=== PATIENT | female | born 1985 | race Caucasian/White ===

== ENCOUNTER 2020-08-30 12:56 | Outpatient (REF) | payer MEDICAID, SELFPAY ==
--- NOTE | 2020-08-30 09:30 | PAPFT_PTH ---
PATIENT: Kia Page LOC: [facility]#:[id number] AGE/SX: 35/F ROOM: RE08/30/[address]: Cookie Payan : 1985 BED: DIS: 08/30/2020 SPEC #: [id number] RECD: 08/30/20 13:04 STATUS: LISBETH POOL #: [id number] FREDDY: 08/30/20 09:[address]: Cookie Payan DEPT: [facility] Cytology RECD BY: Lacey Rodriguez ENTERED: 08/30/20 13:04 SP TYPE: PAPFT OTHR DR: Erendira Garcia Tissues: 1 - CX/ENDOCX FOR PAP SMEARS Procedures: PAP THIN PREP/[facility] Screening HPV DNA PROBE Comments: [id number]
[2020-08-30 14:59] LABS: Anion Gap 9.4 mmol/L (3-11); BUN 12 mg/dL (7-18); CO2 23.6 mmol/L (21.0-32.0); CREATININE 0.7 mg/dL (0.55-1.02); Calcium 8.7 mg/dL (8.5-10.1); Calculated LDL 123 mg/dL (<100); Chloride 108 mmol/L (98-107); Cholesterol 190 mg/dL (<200); Glucose 94 mg/dL (74-106); HDL Cholesterol 52 mg/dL (40-60); Sodium 141 mmol/L (136-145); TSH (W/Ref FT4) 0.91 uIU/mL (0.36-3.74); Triglyceride 79 mg/dL (<150)
== END 2020-08-30 12:57 | disposition home or self-care (01) ==
LOC: NCHCN 12:56
PROVIDERS: PCP Nurse Practitioner Adult Health; Visit Provider Nurse Practitioner Family
DX: Z12.4 Encounter for screening for malignant neoplasm of cervix (principal); Z11.51 Encounter for screening for human papillomavirus (HPV); Z13.220 Encounter for screening for lipoid disorders; Z13.29 Encounter for screening for other suspected endocrine disorder; Z13.228 Encounter for screening for other metabolic disorders; Z00.00 Encounter for general adult medical examination without abnormal findings
CPT/HCPCS: 80048; 80061; 88142; 84443; 87624

== ENCOUNTER 2024-02-19 14:54 | Emergency (ER) | payer MEDICAID, SELFPAY ==
[2024-02-19 15:03] VITALS: BP 121/98; PULSE 136; RESP 16; TEMP 36.6; O2SAT 98
[2024-02-19] MEDS: Silver sulfaDIAZINE 1% 25 GM TUBE TP (15:51)
[2024-02-19] MEDS: Clindamycin 300 MG CAP PO (15:51)
--- NOTE | 2024-02-19 15:56 | ED.GENADUL_ITS ---
Discharge Plan Disposition Patient Disposition: Home Condition: Stable Discharge Details Clinical Impression: Bilateral foot pain, Contact dermatitis and eczema Primary Care Provider: Erendira Garcia ED Provider: Isidro oRjas Home Meds and New Rx's Prescriptions: New silver sulfadiazine [Silvadene] 1 % cream 1 applic topical BID Qty: 50 0RF Rx Instructions: apply a 1.5 mm thickness clindamycin HCl 150 mg capsule 450 mg PO TID 7 Days Qty: 63 0RF No Action ibuprofen [Advil] 200 mg tablet 800 mg PO Q8H Discharge Instructions Instructions: Contact dermatitis Additional Instructions: please wash legs with the provided chlorhexadine rinse then apply silvadene cream, twice daily take antibiotic as prescribed return if symptoms worsen or aren't improving take medication provided (take 1/2 tab every 6-8 hours) as needed for pain HPI General Date/Time Provider Initiated Documentation: 02/19/24 14:56 . Limitations to Documentation: no limitations . Information obtained by: patient . HPI Narrative: 38-year-old female without significant past medical history presents for evaluation of bilateral foot lesions. She reports the onset of skin changes yesterday. She reports that she does have a history of eczema. She reports that every year she gets a reaction to her boots. She says when she wears her boots and socks for too long she sweats and then this creates a skin condition. She states that she gets it every year. Previously she has had steroids for treatment. She denies any numbness or tingling. Reports pain with touching of the skin. She denies any fever. She denies any history of diabetes or other vascular disorder. Related Data Home Medications ?Medication ?Instructions ?Recorded ?Confirmed clindamycin HCl 150 mg capsule 450 mg (3 x 150 mg) PO TID 7 days 02/19/24 #63 caps ibuprofen 200 mg tablet (Advil) 800 mg PO Q8H 02/19/24 02/19/24 silver sulfadiazine 1 % topical 1 applic topical BID #50 grams 02/19/24 cream (Silvadene) Previous Rx's ?Medication ?Instructions ?Recorded clindamycin HCl 150 mg capsule 450 mg (3 x 150 mg) PO TID 7 days 02/19/24 #63 caps silver sulfadiazine 1 % topical 1 applic topical BID #50 grams 02/19/24 cream (Silvadene) Allergies Allergy/AdvReac Type Severity Reaction Status Date / Time No Known Allergies Allergy Unverified 02/19/24 15:06 General Stated Complaint: RashLesion TEQUILA: 3 Exam Narrative Exam Narrative: Review of Systems: All systems reviewed & are unremarkable except as noted in HPI and below Well-developed, no acute distress NCAT slightly tachycardic Unlabored respiratory effort bilateral LE with lesions noted. mostly on the dorsum of the foot and then is noted circumferential ankle and on medial calf. the calf lesions are almost pustular, like folliculiits there are multiple blisters on the feet, wheeping clear fluid good cap refill and 2+ pulse noted lesions are in distribution of her socks, she notes Course Vital Signs Vital signs: Vital Signs Temperature 36.6 C 02/19/24 15:03 Pulse 136 H 02/19/24 15:03 Respiratory Rate 16 02/19/24 15:03 Blood Pressure 121/98 H 02/19/24 15:03 Pulse Oximetry 98 02/19/24 15:03 Temperature 36.6 C 02/19/24 15:03 Temperature Source Oral 02/19/24 15:03 Pulse 136 H 02/19/24 15:03 Respiratory Rate 16 02/19/24 15:03 Respiratory Effort Normal 02/19/24 15:30 Blood Pressure 121/98 H 02/19/24 15:03 Blood Pressure Position Sitting 02/19/24 15:03 Pulse Oximetry 98 02/19/24 15:03 Oxygen Delivery Method Room Air 02/19/24 15:03 Oxygen Flow Rate 0 02/19/24 15:03 Pain Level 5 02/19/24 15:30 Medical Decision Making Emergent evaluation of bilateral lower extremity lesions. Patient reports that these are secondary to irritation caused by her shoes And that this has happened in the past. She has noted to be slightly tachycardic, but not febrile or hypotensive. I think the tachycardia secondary to pain and on recheck her heart rate was 98. I do not suspect an overwhelming infection. Lesions are not consistent with vascular occlusion or petechial distribution. I do not suspect a derangement in her hematology. It appears to be consistent like she says with some pretty severe contact dermatitis. Given the blistering nature, will clean with chlorhexidine and then treat topically with Silvadene. I think this will provide some analgesia as well as some infection prevention. I think given the severity, will empirically treat with oral antibiotics. She does report history of improvement with Medrol Dosepak however not confident that this would be beneficial to her today. I recommend close reevaluation for wound check. Strict return precautions advised and patient understands to have a low threshold to return. Quality:SDOH Health Related Social Needs: 2 No Data to Display PFSH All Active Problems (Updated 02/19/24 @ 16:31 by Isidro Rojas MD) Contact dermatitis and eczema (Acute) Bilateral foot pain (Acute) Social History Smoking/Tobacco Use Status: Never Smoking risk assessment performed?: Yes Drug use: Never Do you feel safe in your relationship?: Yes
[2024-02-19 16:05] VITALS: PULSE 98
[2024-02-19] MEDS: MORPHine IR 15 MG TAB, 4 TABS/BTL PO (16:35)
--- OUTSIDE RECORDS SUMMARY | 2024-02-19 16:44 | XMS_ITS | Encounter Summary ---
Author Organization [facility] Address [address] [place] [address] Care Team Providers Care Art Preparator Name Role Phone Maricel Prescott MD Primary Care Provider Unav ailable Encounter Details Date Type Department Care Team (Late st Contact Info) Description 04/23/2020 Lab Requisition [facility] Pathology & Laboratory Medicine - [facility] [address] [place] [address] Uzma Blood MD [address] [place] [address] [phone] Contact with and (suspected) exposure to other viral communicable diseases Social History Tobacco Use Types Packs/Day Years Used Date Smoking Tobacco: Never Assessed Interpersonal Safety Answer Date Record ed Physically Hurt Never 10/22/2019 Verbally Threaten Not on file 10/22/2019 Comments Unknown Sex and Gender Information Value Date Recorded Sex Assigned at Not on file Legal Sex Female 18:42 EST Gender Identity Not on file Sexual Orientation Not on file documented as of this encounter Plan of Treatment Not on file documented as of this encounter Procedures Procedure Name Priority Date/Time Associated Diagnosis Comments ZZCOVID-19 TEST [facility] PCR Today 04/23/2020 6:00 EST Contact with and (suspected) exposure to other viral communicable diseases COVID-19 TESTING Today 04/23/2020 6:00 EST Contact with and (suspected) exposure to other viral communicable diseases documented in this encounter Results * COVID-19 TEST [facility] PCR (04/23/2020 6:00 EST) Swab NASAL / Unknown 04/23/2020 6 :00 EST 04/23/2020 20:39 EST Uzma Blood MD MICROBIOLOGY - GENERA L ORDERABLES Final Result Performing Organization Address [facility] Co de Phone Number [facility] [address] [place] [address] * COVID-19 TESTING (04/23/2020 6:00 EST) COVID-19 rt-PCR Result Negative Negative 04/24/2020 16:04 EST [facility] Comment: This test was developed and its performance characteristics determined by [facility]. It has not been cleared or approved by the US Food and Drug Administration. FDA does not require this test to go through premarket FDA review. This test is used for clinical purposes. It should not be regarded as investigational or for research. This laboratory is certified under the Clinical Laboratory Improvement Amendments (CLIA) as qualified to perform high complexity clinical laboratory testing. This test is based on the [facility] COVID-19 Emergency Use Authorization (EUA) assay, with minor modification as defined by the FDA Performed on the [employer] 7 Pro RT-PCR System. Negative results do not preclude 2019-nCoV infection and should not be used as the sole basis for treatment or other patient management decisions. Negative results must be combined with clinical observations, patient history, and epidemiological information. Performing Lab [facility] Lab 04/24/2020 16:04 EST [facility] Swab NASAL / Unknown 04/23/2020 6 :00 EST 04/23/2020 20:39 EST Uzma Blood MD MICROBIOLOGY - GENERA L ORDERABLES Final Result Performing Organization Address City/[facility]/ZIP Co de Phone Number [facility] [address] [place] [address] documented in this encounter Visit Diagnoses Diagnosis Contact with and (suspected) exposure to other viral communicable diseases documented in this encounter Care Teams Art Preparator Relationship Specialty Start Date End Date Maricel Prescott MD PCP - General 05/27/16 documented as of this encounter
--- OUTSIDE RECORDS SUMMARY | 2024-02-19 16:44 | XMS_ITS | Referral Summary ---
Author Organization [facility] Address [address] [place] [address] Care Team Providers Care Etl Consultant Name Role Phone Maricel Prescott MD Primary Care Provider Unav ailable Social History Tobacco Use Types Packs/Day Years Used Date Smoking Tobacco: Never Assessed Interpersonal Safety Answer Date Record ed Physically Hurt Never 10/22/2019 Verbally Threaten Not on file 10/22/2019 Comments Unknown Sex and Gender Information Value Date Recorded Sex Assigned at Not on file Legal Sex Female 18:42 EST Gender Identity Not on file Sexual Orientation Not on file Plan of Treatment Not on file Insurance MEDICAID [place] Care Teams Etl Consultant Relationship Specialty Start Date End Date Maricel Prescott MD PCP - General 05/27/16
--- OUTSIDE RECORDS SUMMARY | 2024-02-19 16:44 | XMS_ITS | Encounter Summary ---
Author Organization [facility] Address [address] [place] [address] Care Team Providers Care Transformer Stock Clerk Name Role Phone Maricel Prescott MD Primary Care Provider Unav ailable Encounter Details Date Type Department Care Team (Late st Contact Info) Description 04/02/2020 Lab Requisition [facility] Pathology & Laboratory Medicine - [facility] [address] [place] [address] Uzma Blood MD [address] [place] [address] [phone] Contact with and (suspected) exposure to other [...] Procedure Name Priority Date/Time Associated Diagnosis Comments DO NOT ORDER STANDALONE - BROAD COVID TEST Today 04/02/2020 7:25 EST Contact with and (suspected) exposure to other viral communicable diseases COVID-19 TESTING Today 04/02/2020 7:25 EST Contact with and (suspected) exposure to other viral communicable diseases documented in this encounter Results * DO NOT ORDER STANDALONE - BROAD COVID TEST (04/02/2020 7:25 EST) [facility] COVID-19 rt-PCR Result NEGATIVE Negative 04/03/2020 23:27 [facility] Comment: 2019-novel Coronavirus (2019-nCoV) not detected by the qRT-PCR assay. Consider testing for other respiratory viruses or re-collecting for 2019-nCoV testing. Note: Optimum timing for peak viral levels during infections caused by 2019-nCoV have not been determined. Collection of multiple specimens from the same patient may be necessary to detect the virus. Limitations Positive results are indicative of active infection with SARS-CoV-2 but do not rule out bacterial infection or co-infection with other viruses. The agent detected may not be the definite cause of disease. In addition, detection of viral RNA may not indicate the presence of infectious virus or that SARS-CoV-2 is the causative agent for clinical symptoms. Negative results do not preclude SARS-CoV-2 infection and should not be used as the sole basis for patient management decisions. Negative results must be combined with clinical observations, patient history, and epidemiological information. False negative results may also occur if amplification inhibitors are present in the specimen or if inadequate numbers of organisms are present in the specimen. Optimum specimen types and timing for peak viral levels during infections caused by SARS-CoV-2 have not been fully determined. Collection of multiple specimens (types and time points) from the same patient may be necessary to detect the virus. The test was validated for use with upper respiratory specimens obtained via nasopharyngeal or oropharyngeal swabs in VTM, UTM, M4, M5, M6, saline, and MTM media. The performance of this test has not been established for other specimens. Specimens collected using other FDA recommended Specimen Collection Materials listed in the FDA COVID-19 [employer] Technologies communication (June 15, 2019) are processed with the caveat that they were not all validated for use with this test and the result must be interpreted in this context. Furthermore, a false negative results may occur if a specimen is improperly collected, transported or handled. If the virus mutates in the RT-PCR target region, SARS-CoV-2 may not be detected or may be detected less predictably. Inhibitors or other types of interference may produce a false negative result. An interference study evaluating the effect of common cold medications was not performed. This test is not FDA-cleared but its performance characteristics were established by our CLIA-certified, CAP-accredited, high complexity laboratory in accordance with CLIA regulations, [employer] (CAP) guidelines (Jun 08, 2019), and FDA guidance (May 20, 2019). This test is only for use under the Food and Drug Administration's Emergency Use Authorization. Swab ENTIRE NASOPHARYNX / Unknown 04/02/2020 7:25 EST 04/02/2020 22:01 EST Uzma Blood MD MICROBIOLOGY - GENERA L ORDERABLES Final Result [facility] [place], [place] * COVID-19 TESTING (04/02/2020 7:25 EST) COVID-19 rt-PCR Result NEGATIVE Negative 04/04/2020 0:28 EST [facility] Comment: 2019-novel Coronavirus (2019-nCoV) not detected by the qRT-PCR assay. Consider testing for other respiratory viruses or re-collecting for 2019-nCoV testing. Note: Optimum timing for peak viral levels during infections caused by 2019-nCoV have not been determined. Collection of multiple specimens from the same patient may be necessary to detect the virus. Limitations Positive results are indicative of active infection with SARS-CoV-2 but do not rule out bacterial infection or co-infection with other viruses. The agent detected may not be the definite cause of disease. In addition, detection of viral RNA may not indicate the presence of infectious virus or that SARS-CoV-2 is the causative agent for clinical symptoms. Negative results do not preclude SARS-CoV-2 infection and should not be used as the sole basis for patient management decisions. Negative results must be combined with clinical observations, patient history, and epidemiological information. False negative results may also occur if amplification inhibitors are present in the specimen or if inadequate numbers of organisms are present in the specimen. Optimum specimen types and timing for peak viral levels during infections caused by SARS-CoV-2 have not been fully determined. Collection of multiple specimens (types and time points) from the same patient may be necessary to detect the virus. The test was validated for use with upper respiratory specimens obtained via nasopharyngeal or oropharyngeal swabs in VTM, UTM, M4, M5, M6, saline, and MTM media. The performance of this test has not been established for other specimens. Specimens collected using other FDA recommended Specimen Collection Materials listed in the FDA COVID-19 [employer] communication (June 15, 2019) are processed with the caveat that they were not all validated for use with this test and the result must be interpreted in this context. Furthermore, a false negative results may occur if a specimen is improperly collected, transported or handled. If the virus mutates in the RT-PCR target region, SARS-CoV-2 may not be detected or may be detected less predictably. Inhibitors or other types of interference may produce a false negative result. An interference study evaluating the effect of common cold medications was not performed. This test is not FDA-cleared but its performance characteristics were established by our CLIA-certified, CAP-accredited, high complexity laboratory in accordance with CLIA regulations, [employer] (CAP) guidelines (Jun 08, 2019), and FDA guidance (May 20, 2019). This test is only for use under the Food and Drug Administration's Emergency Use Authorization. Performing Lab [facility] 04/04/2020 0:28 EST [facility] Swab ENTIRE NASOPHARYNX / Unknown 04/02/2020 7:25 EST 04/02/2020 22:01 EST us Uzma Blood MD MICROBIOLOGY - GENERA L ORDERABLES Final Result [facility] [address] [place], [place] [phone] [place] [address] LABORATORY [place], [place] documented in this encounter Visit Diagnoses Diagnosis Contact with and (suspected) exposure to other viral communicable diseases documented in this encounter Care Teams Transformer Stock Clerk Relationship Specialty Start Date End Date Maricel Prescott MD PCP - General 05/27/16 documented as of this encounter
--- OUTSIDE RECORDS SUMMARY | 2024-02-19 16:44 | XMS_ITS | Encounter Summary ---
Author Organization [facility] Address [address] [place] [address] Care Team Providers Care Brokerage Clerk Name Role Phone Maricel Prescott MD Primary Care Provider Unav ailable Encounter Details Date Type Department Care Team (Late st Contact Info) Description 04/18/2020 Lab Requisition [facility] Pathology & Laboratory Medicine - [facility] [address] [place] [address] Uzma Blood MD [address] [place] [address] [phone] Contact with and (suspected) exposure to other [...] Comments ZZCOVID-19 TEST [facility] PCR Today 04/17/2020 7:30 EST Contact with and (suspected) exposure to other viral communicable diseases COVID-19 TESTING Today 04/17/2020 7:30 EST Contact with and (suspected) exposure to other viral communicable diseases documented in this encounter Results * COVID-19 TEST [facility] PCR (04/17/2020 7:30 EST) Swab ENTIRE NASOPHARYNX / Unknown Swab / Unknown 04/17/2020 7:30 EST 04/18/2020 12:19 EST Uzma Blood MD MICROBIOLOGY - GENERA L ORDERABLES Final Result Performing Organization Address [facility] Co de Phone Number [facility] [address] [place] [address] * COVID-19 TESTING (04/17/2020 7:30 EST) COVID-19 rt-PCR Result Negative Negative 04/18/2020 18:02 EST [facility] Comment: This test has not been FDA cleared or approved. This test has been authorized by FDA under an EUA for use by authorized laboratories. This test has been authorized only for detection of nucleic acid from 2019-nCoV, not for any other viruses or pathogens. This test is only authorized for the duration of the declaration that circumstances exist justifying the authorization of emergency use of in vitro diagnostic tests for detection and/or diagnosis of 2019-nCoV under section 564(b)(1) of Act, 21 U.S.C ?? 360bbb-3(b) (1), unless the authorization is terminated or revoked sooner. Negative results do not preclude 2019-nCoV infection and should not be used as the sole basis for treatment or other patient management decisions. Negative results must be combined with clinical observations, patient history, and epidemiological information. Performed on the Ratio Fusion instrument Performing Lab [facility] 04/18/2020 18:02 EST [facility] Swab Swab / Unknown 04/17/2020 7: 30 EST 04/18/2020 12:19 EST us Uzma Blood MD MICROBIOLOGY - GENERA L ORDERABLES Final Result Performing Organization Address City/[facility]/ZIP Co de Phone Number [facility] [address] [place] [address] documented in this encounter Visit Diagnoses Diagnosis Contact with and (suspected) exposure to other viral communicable diseases documented in this encounter Care Teams Brokerage Clerk Relationship Specialty Start Date End Date Maricel Prescott MD PCP - General 05/27/16 documented as of this encounter
--- OUTSIDE RECORDS SUMMARY | 2024-02-19 16:44 | XMS_ITS | Encounter Summary ---
Author Organization [facility] Address [address] [place] [address] Care Team Providers Care Architectural Sales Consultant Name Role Phone Maricel Prescott MD Primary Care Provider Unav ailable Encounter Details Date Type Department Care Team (Late st Contact Info) Description 04/09/2020 Lab Requisition [facility] Pathology & Laboratory Medicine - [facility] [address] [place] [address] Uzma Blood MD [address] [place] [address] [phone] Contact with and (suspected) exposure to other [...] Comments ZZCOVID-19 TEST [facility] PCR Today 04/09/2020 9:30 EST Contact with and (suspected) exposure to other viral communicable diseases COVID-19 TESTING Today 04/09/2020 9:30 EST Contact with and (suspected) exposure to other viral communicable diseases documented in this encounter Results * COVID-19 TEST [facility] PCR (04/09/2020 9:30 EST) Swab ENTIRE NASOPHARYNX / Unknown Swab / Unknown 04/09/2020 9:30 EST 04/09/2020 21:34 EST Uzma Blood MD MICROBIOLOGY - GENERA L ORDERABLES Final Result Performing Organization Address [facility] Co de Phone Number [facility] [address] [place] [address] * COVID-19 TESTING (04/09/2020 9:30 EST) COVID-19 rt-PCR Result Negative Negative 04/10/2020 19:05 EST [facility] Comment: Negative results do not preclude 2019-nCoV infection and should not be used as the sole basis for treatment or other patient management decisions. Negative results must be combined with clinical observations, patient history, and epidemiological information. This test was developed and its performance characteristics determined by [facility]. It has not been cleared or approved [...] testing. This test is based on the [facility] COVID-19 Emergency Use Authorization (EUA) assay, with minor modification as defined by the FDA Performed on the [employer] Systemso 7 Flex RT-PCR System. Performing Lab [facility] 04/10/2020 19:05 EST [facility] Swab ENTIRE NASOPHARYNX / Unknown Swab / Unknown 04/09/2020 9:30 EST 04/09/2020 21:34 EST Uzma Blood MD MICROBIOLOGY - GENERA L ORDERABLES Final Result Performing Organization Address City/[facility]/ZIP Co de Phone Number [facility] [address] [place] [address] documented in this encounter Visit Diagnoses Diagnosis Contact with and (suspected) exposure to other viral communicable diseases documented in this encounter Care Teams Architectural Sales Consultant Relationship Specialty Start Date End Date Maricel Perscott MD PCP - General 05/27/16 documented as of this encounter
--- OUTSIDE RECORDS SUMMARY | 2024-02-19 16:44 | XMS_ITS | Clinical Summary ---
Author Organization [facility] Address [address] [place] [address] Care Team Providers Care Bridge Opener Name Role Phone Maricel Prescott MD Primary [...] Orientation Not on file Plan of Treatment Health Maintenance Due Date Last Done Comments Hepatitis C Screen 1985 Hepatitis B Vaccine (1 of 3 - 19+ 3-dose series) 08/17 COVID-19 Vaccine (2023- season) 2023 Insurance MEDICAID O [place] Care Teams Bridge Opener Relationship Specialty Start Date End Date Maricel Prescott MD PCP - General 05/27/16
--- OUTSIDE RECORDS SUMMARY | 2024-02-19 16:44 | XMS_ITS | Encounter Summary ---
Author Organization [facility] Address [address] [place] [address] Care Team Providers Care Video Editing Intern Name Role Phone Maricel Prescott MD Primary Care Provider Unav ailable Encounter Details Date Type Department Care Team (Latest Contact Info) Description 09/02/2020 Lab Requisition [facility] Pathology & Laboratory Medicine - [facility] [address] [place] [address] Cookie Payan FNP [address] [place], [place] [phone] Encounter for general adult medical examination without abnormal findings; Encounter for screening for malignant neoplasm of cervix; Encounter for screening for human papillomavirus (HPV) Social History Tobacco Use Types Packs/Day Years [...] Procedure Name Priority Date/Time Associated Diagnosis Comments PAP TEST Today 08/30/2020 9:30 EDT Encounter for general adult medical examination without abnormal findings Encounter for screening for malignant neoplasm of cervix Encounter for screening for human papillomavirus (HPV) HPV DNA DETECTION WITH GENOTYPING, PCR Today 08/30/2020 9:30 EDT Encounter for general adult medical examination without abnormal findings Encounter for screening for malignant neoplasm of cervix Encounter for screening for human papillomavirus (HPV) documented in this encounter Results * HUMAN PAPILLOMAVIRUS (HPV) DETECTION-HIGH RISK TYPES (08/30/2020 9:30 EDT) HPV other High Risk types, PCR Negative Negative 09/11/2020 16:29 EDT [facility] Comment:No E6 or E7 mRNA is detected from HPV types 16,18,31,33,35,39,45,51,52,56,58,59,66, and 68 by hand clerical verifier mediated amplification. Papanicolaou smear specimen (specimen) CERVIX UTERI STRUCTURE / Unknown 08/30/2020 9:30 EDT 09/10/2020 10:16 EDT Cookie Payan STEEL INSPECTOR MICROBIOLOGY - GENERAL ORDERAB LES Final Result [facility] [address] [place] [address] * PAP TEST (08/30/2020 9:30 EDT) Specimens A. Cervix and/or Endocervix , ThinPrep Imaging System with Manual Evaluation 09/11/2020 16:29 EDT [facility] Specimen Adequacy Satisfactory for Evaluation - transformation zone component present 09/11/2020 16:29 EDT [facility] General Categorization Negative for intraepithelial lesion or malignancy 09/11/2020 16:29 T [facility] Attestation . 09/11/2020 16:29 [facility] at 1629 Clinical History See below 09/12/19 16:29 EDT [facility] HPV The result for the Human Papillomavirus (HPV) Detection-High Risk Types is Negative. No E6 or E7 mRNA is detected from HPV types 16,18,31,33,35,39 ,45,51,52,56,58,5 9,66, and 68 by hand clerical verifier mediated amplification.Orquidea ting was performed on specimen [id number] and was resulted on 09/11/2020 1516 EDT by REGGIE, LAB INSTRUMENT RESULTS IN 09/11/2020 16:29 EDT [facility] Performing Lab [facility] 09/11/2020 16:29 EDT [facility] Scanned Images 09/11/2020 16:29 EDT [facility] Papanicolaou smear specimen (specimen) CERVIX UTERI STRUCTURE / Unknown 08/30/2020 9:30 EDT 09/02/2020 15:27 EDT Cookie Payan STEEL INSPECTOR PATHOLOGY ORDERABLES Final Res ult [facility] [address] [place] [address] documented in this encounter Visit Diagnoses Diagnosis Encounter for general adult medical examination without abnormal findings Unspecified general medical examination Encounter for screening for malignant neoplasm of cervix Screening for malignant neoplasm of the cervix Encounter for screening for human papillomavirus (HPV) Special screening examination for human papillomavirus (HPV) documented in this encounter Care Teams Video Editing Intern Relationship Specialty Start Date End Date Maricel Prescott MD PCP - General 05/27/16 documented as of this encounter
--- OUTSIDE RECORDS SUMMARY | 2024-02-19 16:45 | XMS_ITS | Encounter Summary ---
Author Organization [facility] Address [address] [place] [address] Care Team Providers Care Torsion Spring Coiling Machine Setter Name Role Phone Unknown, Provider Primary Care Provider Unava ilable Encounter Details Date Type Department Care Team (Late st Contact Info) Description 05/25/2016 Results Only [facility] [phone] Vinnie Saeed MD [address] [place] [address] Social History Tobacco Use Types Packs/Day Years Used Date Smoking Tobacco: Never Assessed Comments Unknown Sex and Gender Information Value Date Recorded Sex Assigned at Not on file Legal Sex Female 18:42 EST Gender Identity Not on file Sexual Orientation Not on file documented as of this encounter Plan of Treatment Not on file documented as of this encounter Procedures Procedure Name Priority Date/Time Associated Diagnosis Comments SURGICAL PATHOLOGY Routine 05/25/2016 20 :02 EST documented in this encounter Results * SURGICAL PATHOLOGY (05/25/2016 20:02 EST) Pathology Report: SURGICAL PATHOLOGY REPORT Reports generated via electronic interface contain original data; however they are lacking the format of the original report. Caution should be taken when reading/interpret ing unformatted reports. Name: ? KIA PAGE ? Accession #: ? [id number] ? : ? 1985 (Age: 30) ??F ? Collect Date: ? 05/25/2016 ? Location: ? [facility] ? Receive Date: ? 05/26/2016 ? Provider: VINNIE SAEED MD Copy to: ? Final Pathologic Diagnosis: A. ??FALLOPIAN TUBE, LEFT, SALPINGECTOMY: - ??Fallopian tube with no specific pathologic features. - ??Full cross section visualized. B. ??FALLOPIAN TUBE, RIGHT, SALPINGECTOMY: - ??Benign fallopian tube with focal mucosal hyperplasia and prominent Walthard cell nest. - ??Full cross section visualized. Document reviewed and electronically signed by: ALYSSA HUGHES MD Report ??Date: 05/29/2016 14:17 By the signature above, the attending physician certifies that he/she has personally conducted a gross and/or microscopic examination of the described specimens and rendered or confirmed the above diagnosis. Specimen(s) Received: A. ??Left fallopian tube B. ??Right fallopian tube Clinical History: Repeat , desires sterilization; LMP: 39 wk; clinical diagnosis code: O34.21, Z30.2 Gross Description: A. ?Received in formalin labelled with proper patient identification (initials E, C) and left fallopian tube is a 4.8 cm in length fallopian tube averaging 0.6 cm in diameter. The serosa is dull zee-purple. Sections show an intact wall and pinpoint lumen. [employer] sections are submitted to include the entire distal end and one cross section in A1. B. ?Received in formalin labelled with proper patient identification (initials E, C) and right fallopian tube is a 6.5 cm in length fallopian tube ranging from 0.5-0.8 cm in diameter. The serosa is dusky zee-purple. Sections show an intact wall and pinpoint lumen. [employer] sections are submitted to include the entire distal end and one cross section in B1 and B2. JAMA Garcia (ASCP) 05/27/2016 8:54 AM End of Report [facility] 05/25/2016 20:0 2 EST 05/26/2016 20:02 EST us Vinnie Saeed MD PATHOLOGY ORDERABLES Final Resu lt [facility] [address] [place] [address] documented in this encounter Visit Diagnoses Not on filedocumented in this encounter Care Teams Torsion Spring Coiling Machine Setter Relationship Specialty Start Date End Date Unknown, Provider, PCP - General 01/24/15 05/26/16 documented as of this encounter
--- OUTSIDE RECORDS SUMMARY | 2024-02-19 16:45 | XMS_ITS | Encounter Summary ---
Author Organization [facility] Address [address] [place] [address] Care Team Providers Care Paper Machine Supervisor Name Role Phone Unavailable Primary Care Provider Unavailabl e Encounter Details Date Type Department Care Team (Late st Contact Info) Description 07/05/2009 Results Only [facility] Laboratory Services - [facility] ([facility] [address] [place], [place] [id number] Emily Causey NP [address] [place] [address] Social History Tobacco Use Types Packs/Day Years [...] Procedure Name Priority Date/Time Associated Diagnosis Comments HPV DETECTION, HIGH RISK TYPES Routine 07/05/2009 10:37 EDT CYTOPATHOLOGY Routine 07/05/2009 0:00 EDT documented in this encounter Results * HUMAN PAPILLOMA VIRUS DNA TEST (07/05/2009 10:37 EDT) Specimen Description Cervix, ThinPrep vial [facility] Result Negative for HPV types 16, 18, 31, 33, 35, 39, 45, 51, 52, 56, 58, 59, and 68. [facility] Report Status Final 07/15/2009 [facility] 07/05/2009 10:3 7 EDT 07/10/2009 10:37 EDT us Emily Billingsleyews NASIM MICROBIOLOGY - GENERAL ORDERAB LES Final Result [facility] [address] [place] [address] * CYTOPATHOLOGY (07/05/2009 0:00 EDT) Pathology Report: CYTOPATHOLOGY REPORT ? Reports generated via electronic interface contain original data; ? however they are lacking the format of the original report. ? Caution should be taken when reading/interpreti ng unformatted reports. ? Name: ? KIA PAGE ? Accession #: ? [id number] ? : ? 1985 (Age: 23) ??F ?Collect Date: ? 07/05/2009 ? Location: ? [facility] ? Receive Date: ? 07/09/2009 ? Provider: ?EMILY CAUSEY [employer]ESS T[employer]ER [employer] ? Copy to: ? Specimen/Source: ?Pap Test, Cervix/Endocervix, ThinPrep Imaging System ? with manual evaluation ? Last Menstrual Period: ? 04.05.10 ? Other: ? HPVDX - HPV testing requested regardless of diagnosis on current ThinPrep Pap ?? test. ? SPECIMEN ADEQUACY ? Satisfactory for Evaluation ? - transformation zone component present ? GENERAL CATEGORIZATION ? Negative for Intraepithelial Lesion or Malignancy ? Document reviewed and electronically signed by: ? Dalia Leland, [place](ASCP) ? Report Date: ??07/09/2009 15:39 ? End of Report ? [facility] 07/05/2009 07/09/2009 us Emily Causey PRESS TENDER [employer] PATHOLOGY ORDERABLES Final Res ult [facility] [address] [place] [address] documented in this encounter Visit Diagnoses Not on filedocumented in this encounter
--- OUTSIDE RECORDS SUMMARY | 2024-02-19 16:45 | XMS_ITS | Encounter Summary ---
Author Organization [facility] Address [address] [place] [address] Care Team Providers Care Television Maintenance Worker Name Role Phone Maricel Prescott MD Primary Care Provider Unav ailable Encounter Details Date Type Department Care Team (Late st Contact Info) Description 01/02/2020 Lab Requisition [facility] Pathology & Laboratory Medicine - [facility] [address] [place] [address] Uzma Blood MD [address] [place] [phone] Encounter for screening for other viral diseases Social History Tobacco Use Types Packs/Day [...] ORDER STANDALONE - BROAD COVID TEST Today 01/02/2020 7:35 EDT Encounter for screening for other viral diseases COVID-19 TESTING Today 01/02/2020 7:35 EDT Encounter for screening for other viral diseases documented in this encounter Results * DO NOT ORDER STANDALONE - BROAD COVID TEST (01/02/2020 7:35 EDT) COVID-19 rt-PCR Result NEGATIVE Negative 01/03/2020 21:54 EDT [facility] Comment: 2019-novel Coronavirus (2019-nCoV) not detected [...] in accordance with CLIA regulations, [employer] (CAP) guidelines (Jun 08, 2019), and FDA guidance (May 20, 2019). This test is only for use under the Food and Drug Administration's Emergency Use Authorization. Swab ENTIRE NASOPHARYNX / Unknown Not Given / Unknown 01/02/2020 7:35 EDT 01/02/2020 21:21 EDT Uzma Blood MD MICROBIOLOGY - GENERA L ORDERABLES Final Result [place], [place] * COVID-19 TESTING (01/02/2020 7:35 EDT) COVID-19 rt-PCR Result NEGATIVE Negative 01/03/2020 23:34 EDT [facility] Comment: 2019-novel Coronavirus (2019-nCoV) not detected [...] in accordance with CLIA regulations, [employer] (CAP) guidelines (Jun 08, 2019), and FDA guidance (May 20, 2019). This test is only for use under the Food and Drug Administration's Emergency Use Authorization. Performing Lab [facility] 01/03/2020 23:34 EDT [facility] Swab Not Given / Unknown 01/02/2020 7:35 EDT 01/02/2020 21:21 EDT us Uzma Blood MD MICROBIOLOGY - GENERA L ORDERABLES Final Result [facility] [address] [place] [address] [facility] [place], [place] documented in this encounter Visit Diagnoses Diagnosis Encounter for screening for other viral diseases documented in this encounter Care Teams Television Maintenance Worker Relationship Specialty Start Date End Date Maricel Prescott MD PCP - General 05/27/16 documented as of this encounter
--- OUTSIDE RECORDS SUMMARY | 2024-02-19 16:45 | XMS_ITS | Encounter Summary ---
Author Organization [facility] Address [address] [place] [address] Care Team Providers Care Stockroom Inventory Clerk Name Role Phone Maricel Presctot MD Primary Care Provider Unav ailable Encounter Details Date Type Department Care Team (Late st Contact Info) Description 03/05/2020 Lab Requisition [facility] Pathology & Laboratory Medicine - [facility] [address] [place] [address] Uzma Blood MD [address] [place] [phone] Contact with and (suspected) exposure to other [...] ORDER STANDALONE - BROAD COVID TEST Today 03/05/2020 7:15 EST Contact with and (suspected) exposure to other viral communicable diseases COVID-19 TESTING Today 03/05/2020 7:15 EST Contact with and (suspected) exposure to other viral communicable diseases documented in this encounter Results * DO NOT ORDER STANDALONE - BROAD COVID TEST (03/05/2020 7:15 EST) COVID-19 rt-PCR Result NEGATIVE Negative 03/08/2020 8:45 [facility] Comment: 2019-novel Coronavirus (2019-nCoV) not [...] in accordance with CLIA regulations, College of [employer] (CAP) guidelines (Jun 08, 2019), and FDA guidance (May 20, 2019). This test is only for use under the Food and Drug Administration's Emergency Use Authorization. Swab NASAL / Unknown Swab / Unknown 03/05/2020 7:15 EST 03/05/2020 21:02 EST Uzma Blood MD MICROBIOLOGY - [facility] ORDERABLES Final Result [facility] [place] * COVID-19 TESTING (03/05/2020 7:15 EST) COVID-19 rt-PCR Result NEGATIVE Negative 03/08/2020 10:08 EST [facility] Comment: 2019-novel Coronavirus (2019-nCoV) not [...] in accordance with CLIA regulations, College of [employer] (CAP) guidelines (Jun 08, 2019), and FDA guidance (May 20, 2019). This test is only for use under the Food and Drug Administration's Emergency Use Authorization. Performing Lab [facility] 03/08/2020 10:08 EST [facility] Swab NASAL / Unknown Swab / Unknown 03/05/2020 7:15 EST 03/05/2020 21:02 EST us Uzma Blood MD MICROBIOLOGY - GENERA L ORDERABLES Final Result [facility] [address] [place] [address] [facility] [place], [place] documented in this encounter Visit Diagnoses Diagnosis Contact with and (suspected) exposure to other viral communicable diseases documented in this encounter Care Teams Stockroom Inventory Clerk Relationship Specialty Start Date End Date Maricel Prescott MD PCP - General 05/27/16 documented as of this encounter
--- OUTSIDE RECORDS SUMMARY | 2024-02-19 16:45 | XMS_ITS | Encounter Summary ---
Author Organization [facility] Address [address] [place] [address] Care Team Providers Care Insole Beveler Name Role Phone Unavailable Primary Care Provider Unavailabl e Encounter Details Date Type Department Care Team (Late st Contact Info) Description 06/27/2007 Results Only [facility] [address] [place] [address] Emily Causey NP [address] [place] [address] Social History Tobacco Use Types [...] Procedure Name Priority Date/Time Associated Diagnosis Comments CYTOPATHOLOGY Routine 06/27/2007 0:00 EDT documented in this encounter Results * CYTOPATHOLOGY (06/27/2007 0:00 EDT) Pathology Report: CYTOPATHOLOGY REPORT Reports generated via electronic interface contain original data; however they are lacking the format of the original report. Caution should be taken when reading/interpreti ng unformatted reports. Name: ? KIA PAGE ? Accession #: ? [id number] : ? 1985 (Age: 21) ??F ?Collect Date: ? 06/27/2007 Location: ? [facility] ? Receive Date: ? 06/29/2007 Provider: ?EMILY CAUSEY KING MAKER Copy to: ? Specimen/Source: ?ThinPrep Pap Test, Cervix/Endocervix, processed on roomlinx ThinPrep Imaging System, with manual evaluation Last Menstrual Period: ? 06/01/07 Hormonal/Contracep tive Status: ? Orthotricyclen Other: ? HPVA - HPV testing requested if ASC-US on the current ThinPrep Pap test. ? SPECIMEN ADEQUACY ? Satisfactory for Evaluation - transformation zone component present - scant squamous epithelial component secondary to excessive blood GENERAL CATEGORIZATION ? Negative for Intraepithelial Lesion or Malignancy INTERPRETATION ? Shift in eun present suggestive of bacterial vaginosis. ? Document reviewed and electronically signed by: ? ALLYN Brito(ASCP) ? Report Date: ??07/04/2007 09:33 End of Report [facility] 06/27/2007 06/29/2007 us Emily Causey KING MAKER PATHOLOGY ORDERABLES Final Res ult [facility] [address] [place] [address] documented in this encounter Visit Diagnoses Not on filedocumented in this encounter
--- OUTSIDE RECORDS SUMMARY | 2024-02-19 16:45 | XMS_ITS | Encounter Summary ---
Author Organization [facility] Address [address] [place] [address] Care Team Providers Care Coupon Collection Clerk Name Role Phone Maricel Prescott MD Primary Care Provider Unav ailable Encounter Details Date Type Department Care Team (Late st Contact Info) Description 03/19/2020 Lab Requisition [facility] Pathology & Laboratory Medicine - [facility] [address] [place] [address] Uzma Blood MD [address] [place] [phone] Contact with and (suspected) exposure to other [...] ORDER STANDALONE - BROAD COVID TEST Today 03/19/2020 7:30 EST Contact with and (suspected) exposure to other viral communicable diseases COVID-19 TESTING Today 03/19/2020 7:30 EST Contact with and (suspected) exposure to other viral communicable diseases documented in this encounter Results * DO NOT ORDER STANDALONE - BROAD COVID TEST (03/19/2020 7:30 EST) COVID-19 rt-PCR Result NEGATIVE Negative 03/20/2020 18:18 [facility] Comment: 2019-novel [...] in accordance with CLIA regulations, College of [employer] (CAP) guidelines (Jun 08, 2019), and FDA guidance (May 20, 2019). This test is only for use under the Food and Drug Administration's Emergency Use Authorization. Swab NASAL / Unknown Swab / Unknown 03/19/2020 7:30 EST 03/19/2020 21:47 EST Uzma Blood MD MICROBIOLOGY - GENERA L ORDERABLES Final Result [facility] [place], [place] * COVID-19 TESTING (03/19/2020 7:30 EST) COVID-19 rt-PCR Result NEGATIVE Negative 03/20/2020 20:58 EST [facility] Comment: 2019-novel Coronavirus (2019-nCoV) not [...] in accordance with CLIA regulations, College of [employer] (CAP) guidelines (Jun 08, 2019), and FDA guidance (May 20, 2019). This test is only for use under the Food and Drug Administration's Emergency Use Authorization. Performing Lab [facility] 03/20/2020 20:58 EST [facility] Swab NASAL / Unknown Swab / Unknown 03/19/2020 7:30 EST 03/19/2020 21:47 EST us Uzma Blood MD MICROBIOLOGY - GENERA L ORDERABLES Final Result [facility] [address] [place] [phone] [place] [address] LABORATORY [place], [place] documented in this encounter Visit Diagnoses Diagnosis Contact with and (suspected) exposure to other viral communicable diseases documented in this encounter Care Teams Coupon Collection Clerk Relationship Specialty Start Date End Date Maricel Prescott MD PCP - General 05/27/16 documented as of this encounter
--- OUTSIDE RECORDS SUMMARY | 2024-02-19 16:45 | XMS_ITS | Encounter Summary ---
Author Organization [facility] Address [address] [place] [address] Care Team Providers Care Ticket Sales Agent Name Role Phone Maricel Prescott MD Primary Care Provider Unav ailable Encounter Details Date Type Department Care Team (Late st Contact Info) Description 03/12/2020 Lab Requisition [facility] Pathology & Laboratory Medicine - [facility] [address] [place] [address] Uzma Blood MD [address] [place] [address] [phone] Contact with and (suspected) exposure to other [...] ORDER STANDALONE - BROAD COVID TEST Today 03/12/2020 9:12 EST Contact with and (suspected) exposure to other viral communicable diseases COVID-19 TESTING Today 03/12/2020 9:12 EST Contact with and (suspected) exposure to other viral communicable diseases documented in this encounter Results * DO NOT ORDER STANDALONE - BROAD COVID TEST (03/12/2020 9:12 EST) COVID-19 rt-PCR Result NEGATIVE Negative 03/13/2020 21:18 [facility] Comment: 2019-novel Coronavirus (2019-nCoV) [...] in accordance with CLIA regulations, [employer] of [place] (CAP) guidelines (Jun 08, 2019), and FDA guidance (May 20, 2019). This test is only for use under the Food and Drug Administration's Emergency Use Authorization. Swab ENTIRE NASOPHARYNX / Unknown Swab / Unknown 03/12/2020 9:12 EST 03/12/2020 21:39 EST Uzma Blood MD MICROBIOLOGY - GENERA L ORDERABLES Final Result [facility] [place], [place] * COVID-19 TESTING (03/12/2020 9:12 EST) COVID-19 rt-PCR Result NEGATIVE Negative 03/14/2020 0:23 EST [facility] Comment: 2019-novel Coronavirus (2019-nCoV) not [...] in accordance with CLIA regulations, [employer] of [place] (CAP) guidelines (Jun 08, 2019), and FDA guidance (May 20, 2019). This test is only for use under the Food and Drug Administration's Emergency Use Authorization. Performing Lab [facility] 03/14/2020 0:23 EST [facility] Swab ENTIRE NASOPHARYNX / Unknown Swab / Unknown 03/12/2020 9:12 EST 03/12/2020 21:39 EST us Uzma Blood MD MICROBIOLOGY - GENERA L ORDERABLES Final Result [facility] [address] [place], [place] [phone] [place] [address] [facility]ORATORY [place], [place] documented in this encounter Visit Diagnoses Diagnosis Contact with and (suspected) exposure to other viral communicable diseases documented in this encounter Care Teams Ticket Sales Agent Relationship Specialty Start Date End Date Maricel Prescott MD PCP - General 05/27/16 documented as of this encounter
--- OUTSIDE RECORDS SUMMARY | 2024-02-19 16:45 | XMS_ITS | Encounter Summary ---
Author Organization [facility] Address [address] [place] [address] Care Team Providers Care Packing Room Worker Name Role Phone Maricel Prescott MD Primary Care Provider Unav ailable Encounter Details Date Type Department Care Team (Late st Contact Info) Description 01/16/2020 Lab Requisition [facility] Pathology & Laboratory Medicine - [facility] [address] [place] [address] Uzma Blood MD [address] [place] [address] [phone] Encounter for screening for other viral diseases [...] ORDER STANDALONE - BROAD COVID TEST Today 01/16/2020 8:00 EDT Encounter for screening for other viral diseases COVID-19 TESTING Today 01/16/2020 8:00 EDT Encounter for screening for other viral diseases documented in this encounter Results * DO NOT ORDER STANDALONE - BROAD COVID TEST (01/16/2020 8:00 EDT) COVID-19 rt-PCR Result NEGATIVE Negative 01/17/2020 17:27 EDT [facility] Comment: 2019-novel Coronavirus (2019-nCoV) not detected [...] in accordance with CLIA regulations, [employer] (CAP) guidelines (Jun 08, 2019), and FDA guidance (May 20, 2019). This test is only for use under the Food and Drug Administration's Emergency Use Authorization. Swab ENTIRE NASOPHARYNX / Unknown 01/16/2020 8:00 EDT 01/16/2020 22:52 EDT Uzma Blood MD MICROBIOLOGY - GENERA L ORDERABLES Edited Result - Final [facility] [place], [place] * COVID-19 TESTING (01/16/2020 8:00 EDT) COVID-19 rt-PCR Result NEGATIVE Negative 02/10/2020 18:26 EST [facility] Comment: 2019-novel Coronavirus (2019-nCoV) not detected [...] in accordance with CLIA regulations, [employer] (CAP) guidelines (Jun 08, 2019), and FDA guidance (May 20, 2019). This test is only for use under the Food and Drug Administration's Emergency Use Authorization. Performing Lab [facility] 02/10/2020 18:26 EST [facility] Swab 01/16/2020 8:00 EDT 01/16/2020 22:52 EDT us Uzma Blood MD MICROBIOLOGY - GENERA L ORDERABLES Final Result [facility] [address] [place], [place] [id number] [place] [address] LABORATORY [place], [place] documented in this encounter Visit Diagnoses Diagnosis Encounter for screening for other viral diseases documented in this encounter Care Teams Packing Room Worker Relationship Specialty Start Date End Date Maricel Prescott MD PCP - General 05/27/16 documented as of this encounter
--- OUTSIDE RECORDS SUMMARY | 2024-02-19 16:45 | XMS_ITS | Encounter Summary ---
Author Organization [facility] Address [address] [place] [address] Care Team Providers Care Filter Changing Technician Name Role Phone Maricel Prescott MD Primary Care Provider Unav ailable Encounter Details Date Type Department Care Team (Late st Contact Info) Description 02/27/2020 Lab Requisition [facility] Pathology & Laboratory Medicine - [facility] [address] [place] [address] Uzma Blood MD [address] [place] [address] [phone] Contact with and (suspected) exposure to other [...] Comments ZZCOVID-19 TEST [facility] PCR Today 02/27/2020 7:35 EST Contact with and (suspected) exposure to other viral communicable diseases COVID-19 TESTING Today 02/27/2020 7:35 EST Contact with and (suspected) exposure to other viral communicable diseases documented in this encounter Results * COVID-19 TEST [facility] PCR (02/27/2020 7:35 EST) Swab NASAL / Unknown 02/27/2020 7 :35 EST 02/27/2020 21:54 EST Uzma Blood MD MICROBIOLOGY - GENERA L ORDERABLES Final Result Performing Organization Address [facility] Co de Phone Number [facility] [address] [place] [address] * COVID-19 TESTING (02/27/2020 7:35 EST) COVID-19 rt-PCR Result Negative Negative 02/28/2020 14:56 EST [facility] Comment: This test has not [...] history, and epidemiological information. Performed on the [employer] Fusion instrument Performing Lab [place] [facility] 02/28/2020 14:56 EST [facility] Swab NASAL / Unknown 02/27/2020 7 :35 EST 02/27/2020 21:54 EST us Uzma Blood MD MICROBIOLOGY - GENERA L ORDERABLES Final Result Performing Organization Address City/[facility]/ZIP Co de Phone Number [facility] [address] [place] [address] documented in this encounter Visit Diagnoses Diagnosis Contact with and (suspected) exposure to other viral communicable diseases documented in this encounter Care Teams Filter Changing Technician Relationship Specialty Start Date End Date Maricel Prescott MD PCP - General 05/27/16 documented as of this encounter
--- OUTSIDE RECORDS SUMMARY | 2024-02-19 16:45 | XMS_ITS | Encounter Summary ---
Author Organization [facility] Address [address] [place] [address] Care Team Providers Care Hose Seamer Name Role Phone Unavailable Primary Care Provider Unavailabl e Encounter Details Date Type Department Care Team (Late st Contact Info) Description 06/29/2008 Orders Only [facility] Laboratory Services - [facility] [address], [place] [id number] Emily Causey NP [address] [place] [address] Social History Tobacco Use Types [...] Comments HPV DETECTION, HIGH RISK TYPES Routine 06/29/2008 10:30 EDT CYTOPATHOLOGY Routine 06/29/2008 0:00 EDT documented in this encounter Results * HUMAN PAPILLOMA VIRUS DNA TEST (06/29/2008 10:30 EDT) Specimen Description Cervix, ThinPrep vial [facility] Result Negative for HPV types 16, 18, 31, 33, 35, 39, 45, 51, 52, 56, 58, 59, and 68. [facility] Report Status Final 07/11/2008 [facility] 06/29/2008 10:3 0 EDT 07/05/2008 9:57 EDT us Emily Causey NP MICROBIOLOGY - GENERAL ORDERAB LES Final Result [facility] [address] [place] [address] * CYTOPATHOLOGY (06/29/2008 0:00 EDT) Pathology Report: CYTOPATHOLOGY REPORT ? Reports generated via electronic interface contain original data; ? however they are lacking the format of the original report. ? Caution should be taken when reading/interpreti ng unformatted reports. ? Name: ? KIA PAGE ? Accession #: ? [id number] ? : ? 1985 (Age: 22) ??F ?Collect Date: ? 06/29/2008 ? Location: ? [facility] ? Receive Date: ? 07/03/2008 ? Provider: ?EMILY CAUSEY HISTORICAL MANUSCRIPTS CURATOR ? Copy to: ? Specimen/Source: ?Pap Test, Cervix/Endocervix, ThinPrep Imaging System ? with manual evaluation ? Last Menstrual Period: ? Menstrual/Pregnanc y Status: ? Post ? Other: ? HPVDX - HPV testing requested regardless of diagnosis on current ThinPrep Pap ?? test. ? SPECIMEN ADEQUACY ? Satisfactory for Evaluation ? - transformation zone component present ? GENERAL CATEGORIZATION ? Negative for Intraepithelial Lesion or Malignancy ? Document reviewed and electronically signed by: ? Dalia Ha, CT(ASCP) ? Report Date: ??07/04/2008 14:18 ? End of Report ? [facility] 06/29/2008 07/03/2008 us Emily Causey HISTORICAL MANUSCRIPTS CURATOR PATHOLOGY ORDERABLES Final Res ult [facility] [address] [place] [address] documented in this encounter Visit Diagnoses Not on filedocumented in this encounter
--- OUTSIDE RECORDS SUMMARY | 2024-02-19 16:45 | XMS_ITS | Encounter Summary ---
Author Organization [facility] Address [address] [place] [address] Care Team Providers Care Coroner Name Role Phone Unavailable Primary Care Provider Unavailabl e Encounter Details Date Type Department Care Team (Late st Contact Info) Description 05/04/2012 Results Only [facility] [phone] Felicia Hawley, FAST FOODS WORKER [address] [facility] [address] Social History Tobacco Use Types Packs/Day Years [...] Name Priority Date/Time Associated Diagnosis Comments PAP TEST- RESULT ONLY Routine 05/04/2012 0:00 EST documented in this encounter Results * PAP TEST- RESULT ONLY (05/04/2012 0:00 EST) Pathology Report: CYTOPATHOLOGY REPORT Reports generated via electronic interface contain original data; however they are lacking the format of the original report. Caution should be taken when reading/interpreti ng unformatted reports. Name: ? KIA PAGE ? Accession #: ? [id number] : ? 1985 (Age: 26) ??F ?Collect Date: ? 05/04/2012 Location: ? [facility] ? Receive Date: ? 05/06/2012 Provider: ?FELICIA HAWLEY FAST FOODS WORKER Copy to: ? Specimen/Source: ?Pap Test, Cervix/Endocervix, ThinPrep Imaging System with manual evaluation Last Menstrual Period: ? Menstrual/Pregnanc y Status: ? SPECIMEN ADEQUACY ? Satisfactory for Evaluation - transformation zone component present GENERAL CATEGORIZATION ? Negative for Intraepithelial Lesion or Malignancy ? Document reviewed and electronically signed by: ? Hector Wolfe, CT(ASCP) ? Report Date: ??05/10/2012 08:38 End of Report [facility] 05/04/2012 05/06/2012 us Felicia Hawley APRN PATHOLOGY ORDERABLES Final Re sult [facility] [address] [place] [address] documented in this encounter Visit Diagnoses Not on filedocumented in this encounter
--- OUTSIDE RECORDS SUMMARY | 2024-02-19 16:45 | XMS_ITS | Encounter Summary ---
Author Organization [facility] Address [address] [place] [address] Care Team Providers Care Air Traffic Control Manager Name Role Phone Unknown, Provider Primary Care Provider Unava ilable Encounter Details Date Type Department Care Team (Latest Contact Info) Description 05/25/2016 12:03 EST - 05/25/2016 23:59 EST Hospital Encounter [address] [address] Unknown, Provider, Discharge Disposition: Home or Self Care Social History Tobacco Use Types Packs/Day Years Used Date Smoking Tobacco: Never Assessed Comments Unknown Sex and Gender Information Value Date Recorded Sex Assigned at Not on file Legal Sex Female 18:42 EST Gender Identity Not on file Sexual Orientation Not on file documented as of this encounter Discharge Disposition Disposition Code Departure Means Destination Home or Self Half-Way documented in this encounter Plan of Treatment Not on file documented as of this encounter Visit Diagnoses Not on filedocumented in this encounter Care Teams Air Traffic Control Manager Relationship Specialty Start Date End Date Unknown, Provider, PCP - General 01/24/15 05/26/16 documented as of this encounter
--- OUTSIDE RECORDS SUMMARY | 2024-02-19 16:45 | XMS_ITS | Encounter Summary ---
Author Organization [facility] Address [address] [place] [address] Care Team Providers Care Vest Backer Name Role Phone Maricel Prescott MD Primary Care Provider Unav ailable Encounter Details Date Type Department Care Team (Late st Contact Info) Description 03/26/2020 Lab Requisition [facility] Pathology & Laboratory Medicine - [facility] [address] [place] [address] Uzma Blood MD [address] [place] [address] [phone] Contact with and (suspected) exposure to other [...] ORDER STANDALONE - BROAD COVID TEST Today 03/26/2020 7:30 EST Contact with and (suspected) exposure to other viral communicable diseases COVID-19 TESTING Today 03/26/2020 7:30 EST Contact with and (suspected) exposure to other viral communicable diseases documented in this encounter Results * DO NOT ORDER STANDALONE - BROAD COVID TEST (03/26/2020 7:30 EST) [facility] COVID-19 rt-PCR Result NEGATIVE Negative 03/27/2020 22:09 R [facility] Comment: 2019-novel Coronavirus (2019-nCoV) not [...] laboratory in accordance with CLIA regulations, [employer] (CAP) guidelines (Jun 08, 2019), and FDA guidance (May 20, 2019). This test is only for use under the Food and Drug Administration's Emergency Use Authorization. Swab NASAL / Unknown 03/26/2020 7 :30 EST 03/26/2020 22:00 EST Uzma Blood MD MICROBIOLOGY - GENERA L ORDERABLES Final Result [place], [place] * COVID-19 TESTING (03/26/2020 7:30 EST) COVID-19 rt-PCR Result NEGATIVE Negative 03/27/2020 23:07 EST [facility] Comment: 2019-novel Coronavirus (2019-nCoV) not detected [...] in accordance with CLIA regulations, [employer] (CAP) guidelines (Jun 08, 2019), and FDA guidance (May 20, 2019). This test is only for use under the Food and Drug Administration's Emergency Use Authorization. Performing Lab [facility] 03/27/2020 23:07 EST [facility] Swab NASAL / Unknown 03/26/2020 7 :30 EST 03/26/2020 22:00 EST us Uzma Blood MD MICROBIOLOGY - GENERA L ORDERABLES Final Result [facility] [address] [place] [address] [facility] [place], [place] documented in this encounter Visit Diagnoses Diagnosis Contact with and (suspected) exposure to other viral communicable diseases documented in this encounter Care Teams Vest Backer Relationship Specialty Start Date End Date Maricel Prescott MD PCP - General 05/27/16 documented as of this encounter
== END 2024-02-19 16:39 | disposition home or self-care (01) ==
LOC: ER 16:43
PROVIDERS: Emergency Provider Emergency Medicine; PCP Nurse Practitioner Adult Health
DX: M79.671 Pain in right foot (principal); M79.672 Pain in left foot; L30.8 Other specified dermatitis
CPT/HCPCS: 99283

== ENCOUNTER 2024-02-28 08:06 | Emergency (ER) | payer MEDICAID, SELFPAY ==
--- NOTE | 2024-02-28 08:13 | ED.GENADUL_ITS ---
Discharge Plan Disposition Patient Disposition: Home Discharge Details Clinical Impression: Eczema Primary Care Provider: Unknown,Unknown ED Provider: Armando Goff Home Meds and New Rx's Prescriptions: New methylprednisolone [Medrol (Fidel)] 4 mg tablets,dose pack See Rx Instructions .ROUTE .COMPLEX Qty: 21 0RF Rx Instructions: for 6 days cetirizine 10 mg tablet 10 mg PO DAILY PRNQty: 7 0RF Continued ibuprofen [Advil] 200 mg tablet 800 mg PO Q8H silver sulfadiazine [Silvadene] 1 % cream 1 applic topical BID Qty: 50 0RF Rx Instructions: apply a 1.5 mm thickness Discharge Instructions Instructions: Eczema ED Additional Instructions: You are seen emergency department for your rash. He will be set up with a primary care provider that you should see later this week. You may or may not benefit from a referral to dermatology. Please return to the emergency department if you develop fevers worsening rash or any difficulty breathing. Stand Alone Forms: Work Release Discharge Data Discharge Date/Time-TO BE ENTERED AT DEPARTURE: 02/28/24 08:42 HPI General Date/Time Provider Initiated Documentation: 02/28/24 08:12 . HPI Narrative: MDM This is an overall well-appearing normothermic and initially tachycardic 38-year-old female with diffuse eczema for which she will receive steroids and outpatient PCP follow-up. No pain out of proportion to suggest necrotizing soft tissue infection. No new medications nor fevers to suggest dress syndrome. No petechiae to suggest meningitis. No bullae to suggest Cano-Anson's nor any oral involvement to suggest TEN. No palpable purpura to suggest Henoch- Scott?nlein purpura. No difficulty breathing to suggest anaphylaxis. I advised close follow-up and treated the patient with 6 days of steroids. I also treated her with cetirizine. I considered sepsis as patient was initially septic however tachycardia resolved without intervention and so I did not draw blood cultures nor treat barely with IV antibiotics. Tachycardia resolved without intervention. HPI This is a 38-year-old female history of eczema arrived emerged part via private vehicle in setting of worsened eczema. Patient was seen earlier this fall for bilateral lower extremity pain which improved following antibiotics. She notes that over the past week she has had worsening eczema to her bilateral upper extremities her trunk and her neck. She says that she has been taking diphenhydramine for her symptoms. Last week she also subsequently had COVID. She has had no shortness of breath no fevers no new medications beyond antibiotics earlier this fall. She says that her rash itches. She denies any tongue swelling and intraoral involvement. Exam General: Well-appearing in no acute distress speaking in complete sentences. Head: Normocephalic, atraumatic. Eye: Extraocular eye movements intact. No conjunctival injection. No scleral icterus. Ear, nose, mouth, throat: Grossly normal inspection. Normal voice, handling secretions normally. Neck: Trachea midline. Cardiovascular: Well-perfused distal extremities. Respiratory: Nonlabored respiration. Gastrointestinal: Nondistended abdomen. Musculoskeletal: No edema. Moving all 4 extremities spontaneously. Skin: Diffuse eczema's plaques bilateral upper and lower extremities and confluent on the trunk and back. There is involvement of the patient's right greater than left neck. No intraoral involvement. Patches are blanching. Neurologic: Alert and appropriate, no apparent acute deficits. Psychiatric: Mood and manner are appropriate. Grooming and personal hygiene are appropriate. Related Data Home Medications ?Medication ?Instructions ?Recorded ?Confirmed ibuprofen 200 mg tablet (Advil) 800 mg PO Q8H 02/19/24 02/28/24 silver sulfadiazine 1 % topical 1 applic topical BID #50 grams 02/19/24 02/28/24 cream (Silvadene) cetirizine 10 mg tablet 10 mg PO DAILY PRN #7 tabs 02/28/24 methylprednisolone 4 mg tablets in See Rx Instructions PO .COMPLEX 02/28/24 a dose pack (Medrol (Fidel)) #21 dose pk Previous Rx's ?Medication ?Instructions ?Recorded silver sulfadiazine 1 % topical 1 applic topical BID #50 grams 02/19/24 cream (Silvadene) cetirizine 10 mg tablet 10 mg PO DAILY PRN #7 tabs 02/28/24 methylprednisolone 4 mg tablets in See Rx Instructions PO .COMPLEX 02/28/24 a dose pack (Medrol (Fidel)) #21 dose pk Allergies Allergy/AdvReac Type Severity Reaction Status Date / Time No Known Allergies Allergy Unverified 02/28/24 08:22 General TEQUILA: 3 Medical Decision Making Quality:SDOH Health Related Social Needs: 2 No Data to Display PFSH All Active Problems (Updated 02/28/24 @ 08:37 by Armando Goff MD) Eczema (Acute) Contact dermatitis and eczema (Acute) Bilateral foot pain (Acute) Social History Smoking/Tobacco Use Status: Never Smoking risk assessment performed?: Yes Alcohol Intake: current Alcohol Intake frequency: holidays/special occasions only Drug use: Never Housing: house Do you feel safe in your relationship?: Yes
[2024-02-28 08:17] VITALS: BP 146/78; PULSE 105; RESP 16; TEMP 37.1; O2SAT 96
[2024-02-28 08:28] VITALS: PULSE 99; RESP 16; O2SAT 97
== END 2024-02-28 08:42 | disposition home or self-care (01) ==
LOC: ER 09:12
PROVIDERS: Emergency Provider Emergency Medicine
DX: L30.9 Dermatitis, unspecified (principal)
CPT/HCPCS: 99283

== ENCOUNTER 2024-03-07 21:49 | Emergency (ER) | payer MEDICAID, SELFPAY ==
[2024-03-07 22:06] VITALS: BP 112/64; PULSE 102; RESP 18; TEMP 36.6; O2SAT 98
--- NOTE | 2024-03-07 22:24 | W.ED.GENAD ---
Discharge Plan Disposition Patient Disposition: Home Condition: Good Discharge Details Clinical Impression: Dermatitis Primary Care Provider: Catalino Alvarado ED Provider: Maricel Milton Home Meds and New Rx's Prescriptions: New prednisone 20 mg tablet 60 mg PO DAILY Qty: 43 0RF Rx Instructions: 60mg (three tablets) once a day for days #1-#7 21 30mg (1.5 tablets) once day for days #8-#14 10.5 20mg (1 tablet) once a day for days #15-#21 7 10mg (0.5 tablets) once a day for days #22-29 4 Continued triamcinolone acetonide 0.1 % cream 1 applic topical BID Qty: 454 0RF cetirizine 10 mg tablet 10 mg PO DAILY PRNQty: 7 0RF Discontinued ibuprofen [Advil] 200 mg tablet 800 mg PO Q8H silver sulfadiazine [Silvadene] 1 % cream 1 applic topical BID Qty: 50 0RF Rx Instructions: apply a 1.5 mm thickness methylprednisolone [Medrol (Fidel)] 4 mg tablets,dose pack See Rx Instructions .ROUTE .COMPLEX Qty: 21 0RF Rx Instructions: for 6 days Discharge Instructions Instructions: Skin Rash ED Additional Instructions: Steroid (prednisone) for the next month- follow the directions on the bottle for dosing. Tylenol OTC for pain; follow the directions on the bottle. Avoid ibuprofen, naproxen, or other NSAIDs while taking the steroid. Call your primary care doctor in the morning to schedule an appointment for with the next 72 hours to followup on your visit here. Return to the emergency department for new or worsening symptoms including worsening rash, fever, thick green/white discharge from your rash, or if you have any other concerns. Stand Alone Forms: Work Release Referrals: Catalino Alvarado, BACTERIOLOGIST [employer] [Primary Care Provider] - HPI General Mode of arrival: ambulatory. Date/Time Provider Initiated Documentation: 03/07/24 22:14. Limitations to Documentation: no limitations. Information obtained by: patient. HPI Narrative: 38yo F with hx of eczema presenting for bilateral foot rash. First started 1-2 weeks ago. Thinks she may have had a reaction to her boots. At that time had redness and blistering. Was initially prescribed clindamycin. After taking the clindamycin she had a diffuse rash similar to her eczema with multiple pruritic scaling lesions and so the clindamycin was discontinued and she was started on a short course of steroids Wed-Wednesday. This seemed to help both her scattered lesions and her feet. Today feet became much worse, more painful, oozing clear fluid. Her other lesions are doing well and are not bothersome. Systemically well with no fevers, nausea, vomiting, abdominal pain, chest pain, shortness of breath, or other concerns. Related Data Home Medications ?Medication ?Instructions ?Recorded ?Confirmed cetirizine 10 mg tablet 10 mg PO DAILY PRN #7 tabs 02/28/24 03/03/24 triamcinolone acetonide 0.1 % 1 applic topical BID #454 grams 03/03/24 03/03/24 topical cream prednisone 20 mg tablet 60 mg (3 x 20 mg) PO DAILY #43 tabs 03/07/24 Previous Rx's ?Medication ?Instructions ?Recorded cetirizine 10 mg tablet 10 mg PO DAILY PRN #7 tabs 02/28/24 triamcinolone acetonide 0.1 % 1 applic topical BID #454 grams 03/03/24 topical cream prednisone 20 mg tablet 60 mg (3 x 20 mg) PO DAILY #43 tabs 03/07/24 Allergies Allergy/AdvReac Type Severity Reaction Status Date / Time No Known Allergies Allergy Unverified 02/28/24 08:22 General Stated Complaint: Cellulitis TEQUILA: 3 Review of Systems Narrative: see HPI Exam Narrative Exam Narrative: General: Alert, well appearing Head: Normocephalic, atraumatic Neck: Trachea midline, ?Neck supple. ENT: ?MMM.? No oropharygeal lesions or exudate. Cardiac: ?RRR, no murmurs appreciated Resp: No respiratory distress. CTAB. Abd: ?Soft, non-distended, nontender : ?No suprapubic tenderness. Extremities: ?No deformities.? BLE with marked erythema/echymoiss to dorsum of feet, anterior ankles, and distal anterior shins. Weeping copious serous fluid, no purulence. Neurologic: GCS 15. ? Moves all extremities freely against gravity Course Vital Signs Vital signs: Vital Signs Temperature 36.6 C 03/07/24 22:06 Pulse 102 H 03/07/24 22:06 Respiratory Rate 18 03/07/24 22:06 Blood Pressure 112/64 03/07/24 22:06 Pulse Oximetry 98 03/07/24 22:06 Temperature 36.6 C 03/07/24 22:06 Temperature Source Oral 03/07/24 22:06 Pulse 102 H 03/07/24 22:06 Respiratory Rate 18 03/07/24 22:06 Blood Pressure 112/64 03/07/24 22:06 Blood Pressure Position Sitting 03/07/24 22:06 Pulse Oximetry 98 03/07/24 22:06 Medical Decision Making 38yo F with hx of eczema presenting for bilateral foot rash for 1-2 weeks. Started on clindamycin, had a reaction to this and so it was dced and she was started on steroids. Steroid seemed to improve her foot rash; after compeleting the course on Wednesday it has become markedly worse, more painful, oozing. She has pictures of the rash throughout this period of time which I reviewed; at onset had some bulla and overall looked consistent with contact dermatitis. Slightly tachycardiac on arrival, vital signs otherwise reassuring. Exam suggestive of dermatitis; also considering cellulitis. Not suspicious for nec fasc. History and response to steroids and their discontinuation also more suggestive of dermatitis than celluiits. Given tachycardia here, will evaluate with labs. IV toradol for pain. Labs revewied as below, CBC with leukocytosis to 18 and neutrophilia as expected in the setting of recent steroid use, CMP with no actionable abnormalities (mildly elevated bilirubin for which pt was advised to followup with her PCP), lactate normal, ESR normal, slightly elevated CRP at 4.7. LRINEC score 1. Labs overall reassuring and HR improved to 70's without intervention. I am not concerned for sepsis at this time and overall picture most consistent with dermatitis. Will give methyl pred here and prescribe extended course of prednisone wtih taper for home to prevent rebound/recurrence. Discharged home; discharge instructions and return precautions were reviewed with patient who verbalized understanding. All questions were answered and she is in full agreement with the plan. Lab Data Lab results reviewed: Yes I reviewed the patient's lab results. Labs: Laboratory Tests Range/Units 03/07/24 22:46 WBC (4.4-10.8) 10^3/uL 18.47 H RBC (3.93-5.22) 10^6/uL 4.47 Hgb (11.2-15.7) g/dL 12.8 Hct (36.0-46.0) % 39.3 MCV (80-95) fL 88 MCH (27.0-33.0) pg 28.6 MCHC (32.0-36.0) % 32.6 RDW (11.7-14.6) % 12.3 Plt Count (130-400) 10^3/uL 286 MPV (8.0-11.0) fL 9.7 Immature Gran % % 0.6 Neutrophils % % 90.0 Lymphocytes % % 4.2 Monocytes % % 2.6 Eosinophils % % 2.2 Basophils % % 0.4 Nucleated RBC % (0.0-0.3) % 0.0 Absolute Neutrophils (1.2-6.7) 10^3/uL 16.62 H Absolute Lymphocytes (1.2-3.4) 10^3/uL 0.78 L Absolute Monocytes (0.1-0.8) 10^3/uL 0.48 Absolute Eosinophils (0.0-0.7) 10^3/uL 0.41 Absolute Basophils (0.0-0.2) 10^3/uL 0.07 ESR (0-20) mm/hr 17 VBG Lactate (0.6-1.4) mmol/L 1.1 Sodium (136-145) mmol/L 140 Potassium (3.5-5.1) mmol/L 3.4 L Chloride (98-107) mmol/L 105 Carbon Dioxide (21.0-32.0) mmol/L 26.8 Anion Gap (3-11) mmol/L 8.2 BUN (7-18) mg/dL 11 Creatinine (0.55-1.02) mg/dL 0.9 Est GFR (CKD-EPI 2020) (mL/min/1.73m2) 83.92 Glucose (74-106) mg/dL 128 H Calcium (8.5-10.1) mg/dL 8.5 Total Bilirubin (0.2-1.0) mg/dL 1.45 H AST (15-37) U/L 13 L ALT (14-59) U/L 25 Alkaline Phosphatase (46-116) U/L 73 C-Reactive Protein (<or=0.5) mg/dL 4.69 H Total Protein (6.4-8.2) g/dL 7.2 Albumin (3.4-5.0) g/dL 3.1 L Quality:SDOH Health Related Social Needs: No Data to Display PFSH All Active Problems (Updated 03/07/24 @ 23:38 by Maricel Milton MD) Dermatitis (Acute) Eczema (Acute) Contact dermatitis and eczema (Acute) Bilateral foot pain (Acute) Social History Smoking/Tobacco Use Status: Never Smoking risk assessment performed?: Yes Alcohol Intake: current Alcohol Intake frequency: holidays/special occasions only Drug use: Never Housing: house Do you feel safe in your relationship?: Yes
[2024-03-07 22:51] LABS: Lactate 1.1 mmol/L (0.6-1.4)
[2024-03-07 22:53] LABS: Abs Immature Grans 0.11 10^3/uL (0.0-0.06); Absolute Monocyte Count 0.48 10^3/uL (0.1-0.8); Basophils % 0.4 %; Eosinophils % 2.2 %; HCT 39.3 % (36.0-46.0); HGB 12.8 g/dL (11.2-15.7); Immature Grans % 0.6 %; Lymphocytes % 4.2 %; MCH 28.6 pg (27.0-33.0); MCHC 32.6 % (32.0-36.0); MCV 88 fL (80-95); MPV 9.7 fL (8.0-11.0); Monocytes % 2.6 %; Platelet Count 286 10^3/uL (130-400); RBC 4.47 10^6/uL (3.93-5.22); RDW 12.3 % (11.7-14.6); RDW-SD 39.4 fL; WBC 18.47 10^3/uL (4.4-10.8)
[2024-03-07 22:54] LABS: Absolute Basophil Count 0.07 10^3/uL (0.0-0.2); Absolute Eosinophil Count 0.41 10^3/uL (0.0-0.7); Absolute Lymphocyte Count 0.78 10^3/uL (1.2-3.4); Absolute Neutrophil Count 16.62 10^3/uL (1.2-6.7); ESR 17 mm/hr (0-20)
[2024-03-07] MEDS: Ketorolac 15 MG/ML VIAL IVP (22:55)
[2024-03-07 23:09] LABS: ALT 25 U/L (14-59); AST 13 U/L (15-37); Albumin 3.1 g/dL (3.4-5.0); Alkaline Phosphatase 73 U/L (46-116); Anion Gap 8.2 mmol/L (3-11); BUN 11 mg/dL (7-18); Bilirubin, Total 1.45 mg/dL (0.2-1.0); C-Reactive Protein 4.69 mg/dL (<or=0.5); CO2 26.8 mmol/L (21.0-32.0); CREATININE 0.9 mg/dL (0.55-1.02); Calcium 8.5 mg/dL (8.5-10.1); Chloride 105 mmol/L (98-107); Estimated GFR 83.92 (mL/min/1.73m2); Glucose 128 mg/dL (74-106); Potassium 3.4 mmol/L (3.5-5.1); Sodium 140 mmol/L (136-145); Total Protein 7.2 g/dL (6.4-8.2)
[2024-03-07] MEDS: methylPREDNISolone SUCC 125 MG VIAL 60 MG IVP (23:44)
[2024-03-07 23:55] VITALS: BP 112/55; PULSE 79; RESP 16; TEMP 36.6; O2SAT 98
[2024-03-08 00:06] VITALS: BP 112/55; PULSE 79; RESP 16; TEMP 36.6; O2SAT 98
== END 2024-03-08 00:05 | disposition home or self-care (01) ==
PROVIDERS: Emergency Provider Student in an Organized Health Care Education/Training Program; PCP Nurse Practitioner Family
DX: L30.9 Dermatitis, unspecified (principal)
CPT/HCPCS: 36415; 80053; 85652; 96374; 96375; 99284; 83605; 85025; 86140; J1885; J2919

== ENCOUNTER 2024-04-25 14:44 | Outpatient (REF) | payer MEDICAID, SELFPAY ==
--- NOTE | 2024-04-25 13:20 | PAPFT_PTH ---
PATIENT: Kia Page LOC: [facility] U#:[id number] AGE/SX: 38/F ROOM: RE04/25/[address]: Cheri Mackey NP : 1985 BED: DIS: 04/25/2024 SPEC #: [id number] RECD: 04/25/24 17:46 STATUS: LISBETH REGeorge #: [id number] FREDDY: 04/25/24 13:[address]: Cheri Mackey NP DEPT: [facility] Cytology RECD BY: Lacey Rodriguez ENTERED: 04/25/24 17:46 SP TYPE: PAPFT OTHR DR: Catalino Alvarado NP Tissues: 1 - CX/ENDOCX FOR PAP SMEARS Procedures: PAP THIN PREP/[facility] Screening HPV DNA PROBE Comments: [id number] (HPV 16 & 18/45)
== END 2024-04-25 14:45 | disposition home or self-care (01) ==
LOC: LBN 14:44
PROVIDERS: PCP Nurse Practitioner Family; Visit Provider Nurse Practitioner Women's Health
DX: L30.9 Dermatitis, unspecified (principal); L65.9 Nonscarring hair loss, unspecified; Z01.419 Encounter for gynecological examination (general) (routine) without abnormal findings; Z12.4 Encounter for screening for malignant neoplasm of cervix
CPT/HCPCS: 88142; 87624